=== PATIENT | male | born 1980 | race Caucasian/White ===

== ENCOUNTER → 2021-02-23 18:55 | Outpatient (CLI) | payer OTHER, SELFPAY ==
--- NOTE | 2021-02-23 | DI.MRI.S_ITS ---
PROCEDURE: MR LUMBAR SPINE WO CON INDICATIONS: Low back pain TECHNIQUE: Noncontrast sagittal T1 spin echo and T2 fast echo, sagittal STIR, axial T1 and T2 fast spin echo through the lumbar spine. In cases with scoliosis, additional coronal T2 fast spin echo may be performed. COMPARISON: None. FINDINGS: Image quality: Excellent. Alignment and Curvature: No plain films are available for comparison, for numbering purposes. Thus, for the purposes of this examination, 5 lumbar type vertebral bodies will be presumed, as denoted on the montage panel. This should be confirmed and correlated with plain films, prior to any lumbar spinal intervention. Mild grade 1 retrolisthesis of L1 on L2, L2 on L3, and L3 on L4. Bone Marrow: Marrow is of normal overall signal. No acute vertebral body compression fractures. Small Schmorl's node invaginate the superior L2 endplate with moderate surrounding reactive signal. Atypical hemangioma at L3. Mild reactive signal within the endplates adjacent to the T11-T12, T12-L1, L1-L2, and L2-L3 intervertebral discs. Spinal Cord: Conus medullaris terminates at the mid L1 level. Visualized cord demonstrates normal signal and size. Paraspinous Soft Tissues: No paravertebral masses. T12-L1: Moderate disc height loss and desiccation. Mild diffuse disc bulge. Congenital canal stenosis. Mild epidural lipomatosis. Moderate canal stenosis. Mild bilateral foraminal stenosis. L1-L2: Congenital canal stenosis. Moderate disc height loss and desiccation. Mild diffuse disc bulge. Mild facet and ligamentum flavum hypertrophy. Mild epidural lipomatosis. Moderate to severe canal stenosis. Mild bilateral foraminal stenosis. L2-L3: Congenital canal stenosis. Moderate disc desiccation. Mild disc height loss and diffuse disc bulge with superimposed broad-based left posterolateral and far lateral protrusion. Mild epidural lipomatosis. Moderate canal stenosis. Moderate left and mild right foraminal stenosis. L3-L4: Mild diffuse disc bulge. Mild facet and ligamentum flavum hypertrophy. Mild epidural lipomatosis. Mild canal stenosis. Moderate bilateral foraminal stenosis. L4-L5: Mild disc desiccation and diffuse disc bulge. Mild facet and ligamentum flavum hypertrophy. Mild canal stenosis. Moderate left greater than right foraminal stenosis. L5-S1: Mild diffuse disc bulge. Mild bilateral facet hypertrophy. Mild canal stenosis. Mild bilateral foraminal stenosis. IMPRESSION: 1. Diffuse congenital canal stenosis with superimposed disc and facet disease, as well as epidural lipomatosis. 2. Multilevel canal stenoses, worst at L1-L2, where there is moderate to severe canal stenosis. 3. Multilevel foraminal stenoses, worst at L2-L3, L3-L4, and L4-L5, where there are moderate foraminal stenoses. 4. Superior L2 Schmorl's node, possibly subacute. Dictated by: Judi Vázquez M.D. on 02/24/2021 at 9:41 Approved by: Judi Vázquez M.D. on 02/24/2021 at 9:53
== END ==
DX: M48.061 Spinal stenosis, lumbar region without neurogenic claudication (principal); M48.07 Spinal stenosis, lumbosacral region; M51.46 Schmorl's nodes, lumbar region; M51.26 Other intervertebral disc displacement, lumbar region; M51.27 Other intervertebral disc displacement, lumbosacral region
CPT/HCPCS: 72148

== ENCOUNTER → 2022-09-26 13:09 | Outpatient (CLI) | payer OTHER, SELFPAY ==
--- NOTE | 2022-09-26 | DI.MRI.S_ITS ---
PROCEDURE: MR HEAD/BRAIN WO CON INDICATIONS: Migraine with aura TECHNIQUE: Noncontrast axial T1 spin echo, axial T2 fast spin echo, sagittal and axial FLAIR, coronal T2 fast spin echo, axial gradient echo, axial diffusion and ADC through the brain. COMPARISON: None. FINDINGS: Image quality: Excellent. CSF Spaces: Basal cisterns are patent. No extra-axial fluid collections. Ventricles are normal in size and shape. Brain: No intracranial masses or hemorrhage. Hennessy/white matter interface is normal. Brainstem appears normal. Diffusion-weighted images demonstrate no acute ischemic insult. No chronic ischemic insults. Normal intravascular flow voids are present. Skull and face: Calvarium has normal marrow signal. Orbits appear normal. Sinuses: Sinuses and mastoids are clear. IMPRESSION: Unremarkable noncontrast brain MRI, without a cause of the patient's presenting history identified. Dictated by: Mukund Mathews M.D. on 09/26/2022 at 13:28 Approved by: Mukund Mathews M.D. on 09/26/2022 at 13:28
== END ==
PROVIDERS: PCP Physician Assistant; Referring Provider Physician Assistant; Visit Provider Physician Assistant
DX: G43.109 Migraine with aura, not intractable, without status migrainosus (principal)
CPT/HCPCS: 70551